=== PATIENT | female | born 1945 | race Two or more races ===

== ENCOUNTER 2022-11-27 09:17 | Emergency (ER) | payer OTHER ==
[~2022-11-27] VITALS: Ht 167.6 cm; Wt 63.5 kg
[~2022-11-27 09:17] MED LIST: CIPRO500 MG PO; COLACE100 MG PO; METFORMIN HCL500 MG
[2022-11-27] MEDS ORDERED: KETO10TA2 PO (15:27)
[2022-11-27] MEDS ORDERED: NORFLEX100MG PO (15:27)
== END 2022-11-27 15:48 | disposition home or self-care (01) ==
LOC: ER 09:17
DX: S29.8XXA Other specified injuries of thorax, initial encounter (principal); W11.XXXA Fall on and from ladder, initial encounter; Y93.89 Activity, other specified; Y92.098 Other place in other non-institutional residence as the place of occurrence of the external cause; Y99.8 Other external cause status; M25.552 Pain in left hip; M54.59 Other low back pain; Z88.8 Allergy status to other drugs, medicaments and biological substances; E11.9 Type 2 diabetes mellitus without complications; Z79.84 Long term (current) use of oral hypoglycemic drugs

== ENCOUNTER 2022-12-12 11:48 | Emergency (ER) | payer OTHER ==
[~2022-12-12] VITALS: Ht 157.5 cm; Wt 49.9 kg
[~2022-12-12 11:48] MED LIST changes: +KETO10TA2 PO; +NORFLEX100MG PO
[2022-12-12] MEDS ORDERED: JANUMET 50-1,01 EACH PO (12:13)
[2022-12-12] MEDS ORDERED: SIMVASTATIN40 MG PO (12:13)
[2022-12-12] MEDS ORDERED: GLIPIZIDE XL5 MG PO (12:14)
[2022-12-12] MEDS ORDERED: ARICEPT10 MG PO (12:20)
== END 2022-12-12 16:04 | disposition home or self-care (01) ==
LOC: ER 11:48
DX: K29.70 Gastritis, unspecified, without bleeding (principal); Z88.2 Allergy status to sulfonamides; Z88.0 Allergy status to penicillin; S22.32XA Fracture of one rib, left side, initial encounter for closed fracture; G30.8 Other Alzheimer's disease; F02.80 Dementia in other diseases classified elsewhere, unspecified severity, without behavioral disturbance, psychotic disturbance, mood disturbance, and anxiety; E11.9 Type 2 diabetes mellitus without complications; Z79.84 Long term (current) use of oral hypoglycemic drugs; I10 Essential (primary) hypertension

== ENCOUNTER 2023-06-16 16:28 | Emergency (ER) | payer OTHER ==
[~2023-06-16] VITALS: Ht 162.6 cm; Wt 54.4 kg
[~2023-06-16 16:28] MED LIST changes: +ARICEPT10 MG PO; +GLIPIZIDE XL5 MG PO; +JANUMET 50-1,01 EACH PO; +SIMVASTATIN40 MG PO
[2023-06-16 18:01] LABS: HEMATOCRIT 43.2 % (36.0-45.00); HEMOGLOBIN 14.4 g/dL (12.0-15.00); MEAN CORPUSCULAR HEMOGLOBIN 27.7 pg (27.00-32.0); MEAN CORPUSCULAR HGB CONC 33.3 g/dl (32.0-36.0); PLATELET COUNT 209 K/uL (150-450); RED CELL DISTRIBUTION WIDTH 13.9 % (11.5-14.5)
[2023-06-16 18:36] LABS: BILIRUBIN TOTAL 0.65 mg/dL (0.3-1.2); CALCIUM 9.8 mg/dL (8.5-10.1); CREATININE SERUM 1.28 mg/dL (0.55-1.02); GFR 40.33; POTASSIUM 4.51 mEq/L (3.5-5.1)
[2023-06-16 19:28] LABS: PH,URINE 5.5 (5.0-8.0); URINE APPEARANCE Cloudy; URINE BILIRRUBIN Negative (NEGATIVE); URINE BLOOD Negative; URINE COLOR Yellow; URINE EPITHELIAL CELLS 60.4 uL (0.0-38.8); URINE GLUCOSE Negative (NEGATIVE); URINE LEUKOCYTE Moderate; URINE NITRATE Negative; URINE PROTEIN Trace (NEGATIVE); URINE RBC 5.3 uL (0.0-20.8); URINE UROBILINOGEN 0.2 E.U./dl; URINE WBC 100.6 uL (0.0-23.2)
[2023-06-16] MEDS ORDERED: ZOFRAN8 MG PO (20:10)
[2023-06-16] MEDS ORDERED: PEPCID AC20 MG PO (20:10)
[2023-06-16] MEDS ORDERED: BACTRIM DS TAB1 EACH PO (20:10)
== END 2023-06-16 20:37 | disposition home or self-care (01) ==
LOC: ER 16:29
PROVIDERS: General Practice
DX: N39.0 Urinary tract infection, site not specified (principal); K52.89 Other specified noninfective gastroenteritis and colitis